=== PATIENT | male | born 1955 | race Caucasian/White ===

== ENCOUNTER 2017-08-17 13:27 | Emergency (ER) | payer SELFPAY ==
[~2017-08-17] VITALS: Ht 175.3 cm; Wt 90.7 kg
[2017-08-17] MEDS ORDERED: BYSTOLIC2.5 MG ORAL (13:38)
--- NOTE | 2017-08-17 13:54 | Emergency Room Report ---
History of Present Illness General Chief Complaint: General Complaint Source: Patient Present Illness HPI 62-year-old male presents to the emergency department requesting refill of his high blood pressure medication. Patient states that he was on this medication several years ago and would like to started again. Patient states that he self DC'd from and as he could not afford the prescription. Patient reports he went to donate blood 3 days ago and noted his blood pressure was 176/90 and he became very worried. Pt. reports two episodes last week of dizziness that he reports lasted several seconds, was not vertigo, and happened when he was "stressed". Patient states she's been under a lot of stress lately which may be contributing to his elevated blood pressure. Denies CP, Palpitations, LOC, AMS, Changes in Vision, Sensation, paresthesias, or a sudden severe headache. Allergies: Coded Allergies: No Known Allergies (Unverified , 08/17/17) Patient History Past Medical History: see triage record Past Surgical History: none Pertinent Family History: none Reviewed Nursing Documentation: PMH: Agreed, PSxH: Agreed Nursing Documentation-PMH Hx Hypertension: Yes Review of Systems All Other Systems: negative except mentioned in HPI Physical Exam Vital Signs Date Time Temp Pulse Resp B/P (MAP) Pulse Ox O2 Delivery O2 Flow Rate FiO2 08/17/17 13:34 98.6 79 18 167/90 97 Room Air Sp02 EP Interpretation: reviewed, normal General Appearance: no apparent distress, alert, GCS 15, non-toxic Head: normocephalic, atraumatic Eyes: bilateral eye normal inspection, bilateral eye PERRL ENT: hearing grossly normal, normal voice Neck: full range of motion Respiratory: chest non-tender, lungs clear, normal breath sounds, speaking full sentences Cardiovascular #1: regular rate, rhythm, no edema Rectal: deferred Genitourinary: normal inspection Musculoskeletal: back normal, gait/station normal, normal range of motion, non- tender Neurologic: alert, oriented x3, responsive, motor strength/tone normal, sensory intact, normal gait, speech normal, grossly normal Psychiatric: judgement/insight normal Skin: normal color, no rash, warm/dry, well hydrated Medical Decision Making PA Attestation Dr. Crockett is my supervising Physician whom patient management has been discussed with. Diagnostic Impression: Primary Impression: Encounter for medication refill Additional Impression: Elevated blood pressure reading ER Course 62-year-old male presents to the emergency department requesting refill of his high blood pressure medication. Patient states that he was on this medication several years ago and would like to started again. Patient states that he self DC'd from and as he could not afford the prescription. Patient reports he went to donate blood 3 days ago and noted his blood pressure was 176/90 and he became very worried. Pt. reports two episodes last week of dizziness that he reports lasted several seconds, was not vertigo, and happened when he was "stressed". Patient states she's been under a lot of stress lately which may be contributing to his elevated blood pressure. Denies CP, Palpitations, LOC, AMS, Changes in Vision, Sensation, paresthesias, or a sudden severe headache. Ddx considered but are not limited to: drug seeking, OD, medication or follow up non-compliance, isolated elevated BP. Vital signs: are WNL, pt. is afebrile H&PE are most consistent with need for medication refill. ORDERS: none required at this time, the diagnosis is clinical ED INTERVENTIONS: None required at this time. -Discussed with patient that his blood pressure is not significantly high especially for been off his medication for several years. Discussed with patient I do not feel comfortable starting him back on beta nadine especially since his pressure is not severely elevated. Discussed with patient that he'll be started back on low-dose amlodipine (per-[facility]). instead and that he needs to followup for your reduce costs primary care clinic for management of elevated blood pressures. DISCHARGE: At this time pt. is stable for d/c to home. Will provide printed patient care instructions, and any necessary prescriptions. Care plan and follow up instructions have been discussed with the patient prior to discharge. Last Vital Signs Date Time Temp Pulse Resp B/P (MAP) Pulse Ox O2 Delivery O2 Flow Rate FiO2 08/17/17 13:34 98.6 79 18 167/90 97 Room Air Disposition: HOME, SELF-CARE Condition: Stable Scripts Amlodipine Besylate (Norvasc) 5 Mg Tablet 5 MG ORAL DAILY, #14 TAB Prov: Enriqueta Bridges 08/17/17 Patient Instructions: Medicine Refill at the Emergency Department Additional Instructions: Take medications as directed. Follow up with a Primary Care Provider in 3-5 days, even if your symptoms have resolved. --Please review list of primary care clinics, if you do not already have a primary care provider Return sooner to ED if new symptoms occur, or current symptoms become worse. - Please note that this Emergency Department Report was dictated using [employer] administrator technology software, occasionally this can lead to erroneous entry secondary to interpretation by the dictation equipment. Enriqueta Bridges Aug 17, 2017 13:54
[2017-08-17 14:11] VITALS: BP 167/90
[2017-08-17] MEDS ORDERED: NORVASC5 MG ORAL (14:12)
[2017-08-17 14:22] VITALS: BP 167/90
== END 2017-08-17 14:30 | disposition home or self-care (01) ==
LOC: EMR 13:55
DX: Z76.0 Encounter for issue of repeat prescription (principal); I10 Essential (primary) hypertension
CPT/HCPCS: 99283